=== PATIENT | male | born 1985 | race Caucasian/White ===

== ENCOUNTER 2020-09-02 06:55 | Outpatient (NON) | payer BC, SELFPAY ==
[2020-09-02 20:58] LABS: SARS-CoV-2 RNA PCR Negative
== END 2020-09-02 06:56 ==
LOC: ANHCOVIDDT 07:16
PROVIDERS: PCP Nurse Practitioner Family; Visit Provider Nurse Practitioner Family
DX: Z20.828 Contact with and (suspected) exposure to other viral communicable diseases (principal)
CPT/HCPCS: 87635; C9803; U0003